=== PATIENT | female | born 1980 | race Caucasian/White ===

== ENCOUNTER → 2017-04-04 | Outpatient (CLI) | payer BC | END | disposition home or self-care (01) | LOC: C.PAPS 09:48 | PROVIDERS: ATTEND Physician Assistant | DX: Z01.419 Encounter for gynecological examination (general) (routine) without abnormal findings (principal) ==

== ENCOUNTER → 2017-12-15 | Outpatient (CLI) | payer BC ==
--- NOTE | 2017-12-15 10:13 | DIAGNOSTIC IMAGING REPORT ---
ABDOMINAL ULTRASOUND, RIGHT UPPER QUADRANT HISTORY: Abnormal liver function tests. COMPARISON: None. FINDINGS: Liver morphology is normal. No hepatic lesions are identified. There is no biliary ductal dilatation. The common bile duct measures 3 mm in caliber. The gallbladder is normal. There are no gallstones. The pancreas is within normal limits. There is no right hydronephrosis. IMPRESSION: No significant abnormality identified within the right upper quadrant. Electronically signed by: Sravan Sanchez M.D. 12/15/2017 10:12 AM Dictated Date/Time: 12/15/2017 10:12 AM
== END | disposition home or self-care (01) ==
LOC: C.ULTR 09:48
PROVIDERS: ATTEND Family Medicine
DX: R94.5 Abnormal results of liver function studies (principal)